=== PATIENT | male | born 2000 | race African-American/Black ===

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

== ENCOUNTER 2019-02-12 18:22 | Emergency (ER) | payer MEDICAID ==
[2019-02-12] MEDS ORDERED: LIDOCAINE 1% INJ-PF (10 MG/ML) 30 ML SDV IM ONE (19:27)
[2019-02-12] MEDS ORDERED: CEFTRIAXONE INJ 250 MG VIAL IM ONE (19:27)
[2019-02-12] MEDS ORDERED: AZITHROMYCIN 250 MG TABLET PO ONE (19:27)
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
[2019-02-12 19:47] VITALS: BP 116/50
[2019-02-12 21:36] LABS: CHLAM PCR DETECTED (NOT DETECT)
== END 2019-02-12 20:16 | disposition home or self-care (01) ==
LOC: ER 18:22
DX: Z20.2 Contact with and (suspected) exposure to infections with a predominantly sexual mode of transmission (principal); R36.9 Urethral discharge, unspecified; F17.200 Nicotine dependence, unspecified, uncomplicated
CPT/HCPCS: 87491; 87591; Q0144; J3490; J0696; 96372; 99283

== ENCOUNTER 2019-05-20 20:58 | Emergency (ER) | payer MEDICAID ==
[2019-05-20] MEDS ORDERED: LIDOCAINE 1% INJ-PF (10 MG/ML) 30 ML SDV INJ ONE (23:45)
[2019-05-20] MEDS ORDERED: AZITHROMYCIN 250 MG TABLET PO ONE (23:45)
[2019-05-20] MEDS ORDERED: METOCLOPRAMIDE HCL INJ/PF 10 MG/2 ML SDV IV ONE (23:45)
[2019-05-20] MEDS ORDERED: CEFTRIAXONE INJ 250 MG VIAL IM ONE (23:45)
--- NOTE | 2019-05-20 23:50 | ER Document Report ---
ED Medical Screen (RME) - General Chief Complaint: Nausea/Vomiting Stated Complaint: STD CHECK, VOMITING Time Seen by Provider: 05/20/19 23:39 Primary Care Provider: WILLIE PETE MD [Primary Care Provider] - Follow up as needed TRAVEL OUTSIDE OF THE [place] IN LAST 30 DAYS: No - HPI Notes: 05/20/19 23:43 Patient is a 18-year-old male with no significant past medical history who presents complaining of feeling dehydrated and having nausea, vomiting, and watery diarrhea for the past week. Patient states that he was at a doctor's office and had blood work performed and was told he was dehydrated and needed to come here for fluids. He also tested positive for chlamydia, but did not get any treatment yet. Denies drug allergies. No other concerns or complaints. No fever. No chest pain. I have treated and performed a rapid initial assessment of this patient. A comprehensive ED assessment and evaluation of the patient, analysis of test results and completion of medical decision making process will be conducted by additional ED providers. PHYSICAL EXAMINATION: GENERAL: Well-appearing, well-nourished and in no acute distress. A&Ox4. Answers questions appropriately. Vitals: Pulse 99 during exam on monitor. - Related Data Allergies/Adverse Reactions: No Known Allergies Allergy (Verified 02/12/19 18:24) Past Medical History Renal/ Medical History: Denies: Hx Peritoneal Dialysis Musculoskeltal Medical History: Reports Hx Musculoskeletal Trauma Psychiatric Medical History: Reports: Hx Attention Deficit Hyperactivity Disorder Traumatic Medical History: Reports: Hx Fractures - open ankle fracture Past Surgical History: Reports: Hx Orthopedic Surgery - ORIF ankle - Immunizations Immunizations up to date: Yes Hx Diphtheria, Pertussis, Tetanus Vaccination: Yes Physical Exam - Vital signs Vitals: Temp Pulse Resp BP Pulse Ox 99.4 F 120 H 20 99/84 L 99 05/20/19 21:50 05/20/19 21:50 05/20/19 21:50 05/20/19 21:50 05/20/19 21:50 Course - Vital Signs Vital signs: Temp Pulse Resp BP Pulse Ox 99.4 F 120 H 20 99/84 L 99 05/20/19 21:50 05/20/19 21:50 05/20/19 21:50 05/20/19 21:50 05/20/19 21:50 Doctor's Discharge - Discharge Referrals: WILLIE PETE MD [Primary Care Provider] - Follow up as needed
--- NOTE | 2019-05-21 03:41 | ER Document Report ---
ED General - General Chief Complaint: Vomiting Stated Complaint: STD CHECK, VOMITING Time Seen by Provider: 05/20/19 23:39 Primary Care Provider: WILLIE PETE MD [Primary Care Provider] - Follow up as needed TRAVEL OUTSIDE OF THE [place] IN LAST 30 DAYS: No - HPI Patient complains to provider of: vomiting Notes: 18 y/o presenting to ED for evaluation of vomiting/diarrhea x1 week no blood in stool or emesis he states the fluid loss is actually lessening he is also concerned because he was exposed to chlamydia denies penile discharge, testicle pain no abdominal pain or back pain - Related Data Allergies/Adverse Reactions: No Known Allergies Allergy (Verified 02/12/19 18:24) Past Medical History - Social History Smoking Status: Current Every Day Smoker Frequency of alcohol use: Rare Family History: Reviewed & Not Pertinent Patient has suicidal ideation: No Patient has homicidal ideation: No Renal/ Medical History: Denies: Hx Peritoneal Dialysis Musculoskeletal Medical History: Reports Hx Musculoskeletal Trauma Psychiatric Medical History: Reports: Hx Attention Deficit Hyperactivity Disorder Traumatic Medical History: Reports: Hx Fractures - open ankle fracture Past Surgical History: Reports: Hx Orthopedic Surgery - ORIF ankle - Immunizations Immunizations up to date: Yes Hx Diphtheria, Pertussis, Tetanus Vaccination: Yes Review of Systems - Review of Systems Constitutional: No symptoms reported EENT: No symptoms reported Cardiovascular: No symptoms reported Respiratory: No symptoms reported Gastrointestinal: Diarrhea, Vomiting Genitourinary: No symptoms reported Male Genitourinary: No symptoms reported Musculoskeletal: No symptoms reported Skin: No symptoms reported Hematologic/Lymphatic: No symptoms reported Neurological/Psychological: No symptoms reported Physical Exam - Vital signs Vitals: Temp Pulse Resp BP Pulse Ox 99.4 F 120 H 20 99/84 L 99 05/20/19 21:50 05/20/19 21:50 05/20/19 21:50 05/20/19 21:50 05/20/19 21:50 Interpretation: Normal - General General appearance: Appears well, Alert - HEENT Head: Normocephalic, Atraumatic Eyes: Normal Pupils: PERRL Mucous membranes: Dry Pharynx: Normal Neck: Normal - Respiratory Respiratory status: No respiratory distress Chest status: Nontender Breath sounds: Normal Chest palpation: Normal - Cardiovascular Rhythm: Regular Heart sounds: Normal auscultation Murmur: No Normal capillary refill: Yes - Abdominal Inspection: Normal Distension: No distension Bowel sounds: Normal Tenderness: Nontender Organomegaly: No organomegaly - Back Back: Normal, Nontender - Extremities General upper extremity: Normal inspection, Nontender, Normal color, Normal ROM, Normal temperature General lower extremity: Normal inspection, Nontender, Normal color, Normal ROM, Normal temperature, Normal weight bearing. No: Patricia's sign - Neurological Neuro grossly intact: Yes Cognition: Normal Orientation: AAOx4 Jenny Coma Scale Eye Opening: Spontaneous Jenny Coma Scale Verbal: Oriented Spicer Coma Scale Motor: Obeys Commands Jenny Coma Scale Total: 15 Speech: Normal Motor strength normal: LUE, RUE, LLE, RLE Sensory: Normal - Psychological Associated symptoms: Normal affect, Normal mood - Skin Skin Temperature: Warm Skin Moisture: Dry Skin Color: Normal Course - Re-evaluation Re-evalutation: 05/21/19 03:50 check labs and urine for vomiting/diarrhea treat w/ rocephin/zithromax for STD coverage IVF hydration reglan for nausea symptoms 05/21/19 05:57 indirect bili elevated ->not anemic ->making urine and not in significant renal failure (mild RAUL likely related to dehydration) ->he is mentating normally and afebrile ->discussed w/ Dr Blank who recommends outpt recheck and follow up with pcp ->likely exacerbated by dehydration patient updated on findings and need for follow up, tolerating po at time of discharge and has been treated for chlamydia while here 05/21/19 06:00 - Vital Signs Vital signs: Temp Pulse Resp BP Pulse Ox 98.4 F 87 17 129/74 H 100 05/21/19 04:58 05/21/19 04:58 05/21/19 04:58 05/21/19 04:58 05/21/19 04:58 - Laboratory Result Diagrams: 05/21/19 03:55 05/21/19 03:55 Laboratory results interpreted by me: 05/21/19 05/21/19 05/21/19 03:42 03:55 03:55 RBC 6.64 H Hgb 19.9 H Hct 56.7 H [place] % (Auto) 15.7 H Absolute Monos (auto) 1.5 H Sodium 134.7 L Chloride 84 L Carbon Dioxide 32 H BUN 53 H Creatinine 1.80 H Est GFR ( Amer) 58 L Est GFR (MDRD) Non-Af 48 L Calcium 10.5 H Total Bilirubin 3.5 H Total Protein 9.6 H Albumin 5.6 H Urine Protein Urine Ketones Urine Blood Chlamydia DNA (PCR) DETECTED H 05/21/19 03:58 RBC Hgb Hct [place] % (Auto) Absolute Monos (auto) Sodium Chloride Carbon Dioxide BUN Creatinine Est GFR ( Amer) Est GFR (MDRD) Non-Af Calcium Total Bilirubin Total Protein Albumin Urine Protein 100 H Urine Ketones 20 H Urine Blood SMALL H Chlamydia DNA (PCR) Discharge - Discharge Clinical Impression: Chlamydia, Indirect hyperbilirubinemia, Vomiting and diarrhea Condition: Stable Disposition: HOME, SELF-CARE Instructions: Vomiting ([facility]), Diarrhea, Nonspecific ([facility]), Chlamydia ([facility]) Additional Instructions: you need your CMP rechecked in 1-2 weeks return to ED with worsening of symptoms drink plenty of fluids take medicine as directed Prescriptions: Ondansetron [Zofran Odt 4 mg Tablet] 1 - 2 tab PO Q4H PRN #10 tab.rapdis PRN Reason: For Nausea/Vomiting Referrals: WILLIE PETE MD [Primary Care Provider] - Follow up as needed
[2019-05-21] MEDS: NORMAL SALINE 1000 ML 1,000 ML IV PRN ×2 (03:57→04:12)
[2019-05-21] MEDS ORDERED: METOCLOPRAMIDE HCL INJ/PF 10 MG/2 ML SDV ONE (04:02)
[2019-05-21] MEDS ORDERED: CEFTRIAXONE INJ 500 MG VIAL ONE (04:03)
[2019-05-21] MEDS ORDERED: AZITHROMYCIN 250 MG TABLET ONE (04:04)
[2019-05-21 04:15] LABS: AMORPHOUS SEDIMENT,URINE TRACE /HPF; APPEARANCE,URINE SLIGHTLY-CLOUDY; BILIRUBIN,URINE NEGATIVE (NEGATIVE); COLOR,URINE AMBER; GLUCOSE, URINE NEGATIVE (NEGATIVE); KETONES,URINE 20 mg/dL (NEGATIVE); PROTEIN,URINE 100 mg/dL (NEGATIVE); UROBILINOGEN,URINE NEGATIVE mg/dL (<2.0)
[2019-05-21 04:18] LABS: ABSOLUTE BASOPHILS # (AUTO) 0.1 10^3/uL (0.0-0.2); ABSOLUTE LYMPHOCYTES (AUTO) 3.3 10^3/uL (0.5-4.7); ABSOLUTE MONOCYTES (AUTO) 1.5 10^3/uL (0.1-1.4); ABSOLUTE NEUT (AUTO) 4.6 10^3/uL (1.7-8.2); BASOPHILS % (AUTO) 0.7 % (0-2); EOSINOPHILS % (AUTO) 0.4 % (0-6); HEMOGLOBIN 19.9 g/dL (13.5-17.0); LYMPHOCYTES % (AUTO) 34.6 % (13-45); MEAN CORPUSCULAR HGB CONC 35.2 g/dL (32.0-36.0); MEAN CORPUSCULAR VOLUME 85 fl (80-97); MONOCYTES % (AUTO) 15.7 % (3-13); PLATELET COUNT 305 10^3/uL (150-450); RED BLOOD COUNT 6.64 10^6/uL (4.35-5.55); RED CELL DISTRIBUTION WIDTH 12.9 % (11.5-14.0); SEGMENTED NEUTROPHILS % (AUTO) 48.6 % (42-78); TOTAL CELLS COUNTED % (AUTO) 100 %; WHITE BLOOD COUNT 9.6 10^3/uL (4.0-10.5)
[2019-05-21 04:19] LABS: HEMATOCRIT 56.7 % (37.9-51.0)
[2019-05-21 04:26] LABS: ALBUMIN 5.6 g/dL (3.5-5.0); ALKALINE PHOSPHATASE 111 U/L (38-126); ANION GAP 19 (5-19); ASPARTATE AMINO TRANSFERASE 40 U/L (17-59); BILIRUBIN,DIRECT 0.2 mg/dL (0.0-0.4); BILIRUBIN,TOTAL 3.5 mg/dL (0.2-1.3); BLOOD UREA NITROGEN 53 mg/dL (7-20); CALCIUM 10.5 mg/dL (8.4-10.2); CARBON DIOXIDE 32 mmol/L (22-30); CHLORIDE 84 mmol/L (98-107); GLUCOSE 105 mg/dL (75-110); POTASSIUM 3.7 mmol/L (3.6-5.0); TOTAL PROTEIN 9.6 g/dL (6.3-8.2)
[2019-05-21 05:19] LABS: CHLAM PCR DETECTED (NOT DETECT)
[2019-05-21 06:06] VITALS: BP 122/74
== END 2019-05-21 06:06 | disposition home or self-care (01) ==
LOC: ER 20:58
DX: A74.9 Chlamydial infection, unspecified (principal); E80.6 Other disorders of bilirubin metabolism; R11.10 Vomiting, unspecified; R19.7 Diarrhea, unspecified; Z20.2 Contact with and (suspected) exposure to infections with a predominantly sexual mode of transmission; F17.200 Nicotine dependence, unspecified, uncomplicated
CPT/HCPCS: 36415; 80053; 81001; 83690; 85025; 87491; 87591; J0696; J2765; J7030